=== PATIENT | male | born 1975 | race African-American/Black ===

== ENCOUNTER 2022-08-19 02:24 | Emergency (ER) | payer MEDICAID ==
[~2022-08-19] VITALS: Ht 185.4 cm; Wt 81.6 kg
[2022-08-19 02:27] VITALS: BP 138/74
--- NOTE | 2022-08-19 02:27 | NUR ---
BIBRA 860 FOR R FOOT AND ANKLE PAIN. PT A/OX4. TOLERATING R/A WELL WITH NO RESP DISTRESS. SAFETY MEASURES IN PLACE.
--- NOTE | 2022-08-19 03:54 | NUR ---
Patient discharged to home in stable condition. Written and verbal after care instructions given. Patient verbalizes understanding of instruction.
== END 2022-08-19 03:54 | disposition home or self-care (01) ==
LOC: ER 02:34 → EDBD 02:34 → ER 03:54
DX: S93.401A Sprain of unspecified ligament of right ankle, initial encounter (principal); F20.9 Schizophrenia, unspecified; W01.0XXA Fall on same level from slipping, tripping and stumbling without subsequent striking against object, initial encounter; Y93.89 Activity, other specified; Y92.89 Other specified places as the place of occurrence of the external cause; Y99.8 Other external cause status
CPT/HCPCS: 73610-TC; 73630-TC